=== PATIENT | male | born 1955 | race Caucasian/White ===

== ENCOUNTER 2017-02-09 09:51 | Emergency (ER) | payer OTHER | END 2017-02-09 13:29 | disposition home or self-care (01) | DX: N43.3 Hydrocele, unspecified (principal); N44.2 Benign cyst of testis; I10 Essential (primary) hypertension; E11.9 Type 2 diabetes mellitus without complications; Z79.84 Long term (current) use of oral hypoglycemic drugs; Z79.82 Long term (current) use of aspirin; F17.200 Nicotine dependence, unspecified, uncomplicated ==